=== PATIENT | female | born 1950 | race Two or more races ===

== ENCOUNTER 2017-10-20 19:21 | Inpatient (IN) | payer SELFPAY ==
[~2017-10-20] VITALS: Ht 167.6 cm; Wt 62.9 kg
[2017-10-20 20:25] LABS: Basophils # (auto) 0 uL; Basophils % (auto) 0.3 % (0.0-2.0); Eosinophils # (auto) 0.2 uL; Eosinophils % (auto) 1.6 % (0.0-7.0); Hematocrit 36.2 % (36.0-46.0); Hemoglobin 12.3 g/dL (12.2-16.2); Lymphocytes # (auto) 1.6 uL; Lymphocytes % (auto) 14.6 % (10.0-50.0); Mean Corpuscular Hemoglobin 29.5 pg (28.0-32.0); Mean Corpuscular Hgb Conc. 34.1 g/dL (32.0-36.0); Mean Corpuscular Volume 86.6 fL (80.0-100.0); Monocytes # (auto) 0.9 uL; Monocytes % (auto) 7.6 % (0.0-12.0); Neutrophils # (auto) 8.5 uL; Neutrophils % (auto) 75.9 % (37.0-80.0); Nucleated Red Blood Cells % 0.1 %; Platelet Count (auto) 313 10^3/uL (140-450); Red Blood Cells 4.18 10^6/uL (4.0-5.20); Red Cell Distribution Width 13.2 % (11.8-14.3); White Blood Cell 11.2 10^3/uL (4.4-10.8)
[2017-10-20 20:45] LABS: Urine Bacteria NONE SEEN /hpf (None Seen); Urine Blood Negative /uL (Negative); Urine Mucus FEW (None Seen); Urine Specific Gravity 1.004 (1.001-1.035); Urine WBC 3 /hpf (0 - 5)
[2017-10-20 20:46] LABS: Alanine Aminotransferase 31 U/L (13-56); Albumin 4.2 g/dL (3.4-5.0); Alkaline Phosphatase 128 U/L (45-117); Amylase 87 U/L (25-115); Anion Gap 9 (5-15); Aspartate Aminotransferase 23 U/L (15-37); BUN/Creatinine Ratio 13.3; Bilirubin, Total 0.5 mg/dL (0.2-1.0); Blood Urea Nitrogen 14 mg/dL (7-18); Calcium 9.6 mg/dL (8.5-10.1); Carbon Dioxide 27 mmol/L (21-32); Chloride 104 mmol/L (98-107); GFR African American 67 mL/min; GFR Non-African American 55 mL/min; Glucose 89 mg/dL (74-106); Lipase 262 U/L (73-393); Magnesium 2.6 mg/dL (1.6-2.6); Potassium 3.5 mmol/L (3.5-5.1); Sodium 140 mmol/L (136-145); Total Protein 8.4 g/dL (6.4-8.2)
[2017-10-21] MEDS ORDERED: SODIUM CHLORIDE 0.9% 500 ML IV ONE (02:30)
[2017-10-21] MEDS ORDERED: HYDROcodone-ACET 10/325MG TAB PO ONE (02:30)
[2017-10-21] MEDS ORDERED: CIPROFLOXACIN HCL 500 MG TAB PO ONE (02:30)
[2017-10-21] MEDS ORDERED: MORPHINE SULFATE 10 MG/ML INJ 1ML SDV IV ONE (02:45)
[2017-10-21] MEDS ORDERED: KETOROLAC TROMETH 30 MG/ML 1ML VIAL IV ONE (02:45)
[2017-10-21 03:01] LABS: Basophils # (auto) 0 uL; Basophils % (auto) 0.4 % (0.0-2.0); Eosinophils # (auto) 0.2 uL; Eosinophils % (auto) 2.7 % (0.0-7.0); Hematocrit 36.2 % (36.0-46.0); Lymphocytes # (auto) 1.8 uL; Lymphocytes % (auto) 22.2 % (10.0-50.0); Mean Corpuscular Hemoglobin 28.6 pg (28.0-32.0); Mean Corpuscular Hgb Conc. 33.3 g/dL (32.0-36.0); Monocytes # (auto) 0.8 uL; Neutrophils # (auto) 5.4 uL; Neutrophils % (auto) 65.7 % (37.0-80.0); Platelet Count (auto) 306 10^3/uL (140-450); Red Cell Distribution Width 13.7 % (11.8-14.3); White Blood Cell 8.3 10^3/uL (4.4-10.8)
[2017-10-21 03:18] LABS: Albumin 3.6 g/dL (3.4-5.0); BUN/Creatinine Ratio 14.3; Potassium 3.8 mmol/L (3.5-5.1)
[2017-10-21 03:21] LABS: Bilirubin, Total 0.7 mg/dL (0.2-1.0); Total Protein 7.8 g/dL (6.4-8.2)
[2017-10-21] MEDS ORDERED: ONDANSETRON HCL 4 MG/2 ML VIAL IV PRN (06:15)
[2017-10-21] MEDS ORDERED: ACETAMINOPHEN 500 MG TAB PO PRN (06:15)
[2017-10-21] MEDS: SODIUM CHLORIDE 0.9% 1,000 ML IV SCH (06:15)
[2017-10-21 09:00] VITALS: BP 152/73
[2017-10-21 10:15] VITALS: BP 143/73
[2017-10-21] MEDS ORDERED: MULTTAB5 OR (11:05)
[2017-10-21 13:00] VITALS: BP 115/81
[2017-10-21 17:00] VITALS: BP 150/83
[2017-10-21 17:30] VITALS: BP 145/83
[2017-10-21 22:00] VITALS: BP 141/74
[2017-10-22] MEDS: SODIUM CHLORIDE 0.9% 1,000 ML IV SCH ×3 (00:14→22:28)
[2017-10-22 05:00] VITALS: BP 151/104
[2017-10-22 09:00] VITALS: BP 139/69
[2017-10-22 13:00] VITALS: BP 135/69
[2017-10-22] MEDS ORDERED: SODIUM CHLORIDE 0.9% 1,000 ML IV SCH (13:00)
[2017-10-22] MEDS ORDERED: KETOROLAC TROMETH 30 MG/ML 1ML VIAL IV ONE (14:45)
[2017-10-22 17:00] VITALS: BP 151/76
[2017-10-22] MEDS ORDERED: MORPHINE SULF INJ 2 MG/ML SYRINGE 1ML IV PRN (17:15)
[2017-10-22] MEDS ORDERED: ALUM & MAG HYDROX-SIMETH LIQ(MAALOX) 30 ML PO PRN (17:15)
[2017-10-22 22:00] VITALS: BP 144/69
[2017-10-23 05:00] VITALS: BP 127/86
[2017-10-23] MEDS: SODIUM CHLORIDE 0.9% 1,000 ML IV SCH ×3 (06:43→18:41)
[2017-10-23 07:49] VITALS: BP 148/84
[2017-10-23 08:00] VITALS: BP 148/84
[2017-10-23] MEDS: MANNITOL FTV 25% 12.5 GM/50 ML 50 ML IV ONE ×2 (08:00→09:21)
[2017-10-23] MEDS ORDERED: MANNITOL FTV 25% 12.5 GM/50 ML 50 ML IV ONE (09:30)
[2017-10-23 11:55] VITALS: BP 150/77
[2017-10-23 17:15] VITALS: BP 149/69
[2017-10-23 22:00] VITALS: BP 156/97
[2017-10-24 05:34] VITALS: BP 141/71
[2017-10-24] MEDS: SODIUM CHLORIDE 0.9% 1,000 ML IV SCH (06:43)
[2017-10-24 08:40] VITALS: BP 148/76
[2017-10-24 11:50] VITALS: BP 142/83
[2017-10-24 13:00] VITALS: BP 161/81
== END 2017-10-24 13:30 | disposition home or self-care (01) | DRG 690 ==
LOC: ER 19:21 → OVERFLOW 19:22 → EAST 10-21 08:09
PROVIDERS: ADMIT Nurse Practitioner Family; ATTEND Family Medicine
DX: N13.6 Pyonephrosis (principal); G89.29 Other chronic pain; M41.9 Scoliosis, unspecified; M54.31 Sciatica, right side
CPT/HCPCS: 36415; 74176; 80053; 81001; 82150; 83690; 83735; 84484; 85025; 93005; 96361; 96374; 96375; J1885